=== PATIENT | male | born 1990 | race Caucasian/White ===

== ENCOUNTER 2020-07-13 12:15 | Emergency (ER) | payer OTHER ==
[~2020-07-13] VITALS: Ht 167.6 cm; Wt 74.8 kg
[2020-07-13 12:25] VITALS: BP 137/72
[2020-07-13] MEDS ORDERED: NACL 0.9% 1,000 ML IV ONE (12:45)
[2020-07-13] MEDS ORDERED: INSULIN REGULAR, HUMAN 100 UNIT/ML VIAL IVP ONE (12:45)
[2020-07-13 13:43] VITALS: BP 137/72
== END 2020-07-13 13:43 ==
LOC: MED 12:15
DX: E11.65 Type 2 diabetes mellitus with hyperglycemia (principal); Z02.89 Encounter for other administrative examinations
CPT/HCPCS: 96361; 96374; 99283; J1815; J7030